=== PATIENT | male | born 1965 | race African-American/Black ===

== ENCOUNTER 2016-10-05 06:06 | Outpatient (CLI) | payer MEDICARE, MEDICAID ==
--- NOTE | 2016-10-05 12:10 | Fluoroscopy Report ---
MODIFIED BARIUM SWALLOW History: Dysphagia. Findings: Fluoroscopy was provided by the radiologist for speech therapy to assess the swallowing mechanism. Please refer to the formal report by speech therapy. Impression: Successful modified barium swallow.
== END 2016-10-05 06:07 | disposition home or self-care (01) ==
LOC: EDSEX 06:06 → PT 06:06
PROVIDERS: ATTEND Internal Medicine
DX: R47.01 Aphasia (principal)
CPT/HCPCS: 74230; 92611; G8996; G8997; G8998

== ENCOUNTER 2018-04-19 08:23 | Outpatient (CLI) | payer MEDICARE ==
--- NOTE | 2018-04-19 09:20 | Fluoroscopy Report ---
MODIFIED BARIUM SWALLOW History: Assess swallow safety Findings: Video radiography was provided by the radiologist for speech therapy to assess the swallowing mechanism. 1 fluoroscopic image was captured. Impression: Successful modified barium swallow.
== END 2018-04-19 08:24 | disposition home or self-care (01) ==
LOC: PT 08:23
PROVIDERS: ATTEND Internal Medicine
DX: R13.10 Dysphagia, unspecified (principal); I10 Essential (primary) hypertension; K21.9 Gastro-esophageal reflux disease without esophagitis; Z86.73 Personal history of transient ischemic attack (TIA), and cerebral infarction without residual deficits
CPT/HCPCS: 74230; 92611; G8996; G8997; G8998

== ENCOUNTER 2020-04-01 21:43 | Emergency (ER) | payer MEDICARE ==
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
--- NOTE | 2020-04-01 23:33 | XRay Report ---
ABDOMEN 1 VIEW(S) INDICATION / CLINICAL INFORMATION: Tube evaluation.. COMPARISON: None available. FINDINGS: TUBES / LINES: Gastric tube overlies the expected location of stomach. BOWEL GAS PATTERN: No significant abnormality. Moderate colonic stool greater on the left. ADDITIONAL FINDINGS: No significant additional findings. Signer Name: Vinicio Mckeon MD Signed: 04/01/2020 11:29 PM Workstation Name: [id number]
[2020-04-01] MEDS ORDERED: LORazepam 2 MG/ML VIAL IM ONE (23:42)
[2020-04-02 00:07] LABS: Basophils # (Auto) 0.1 K/mm3 (0.0-0.1); Basophils % (Auto) 0.5 % (0.0-1.8); Eosinophils # (Auto) 0.3 K/mm3 (0.0-0.4); Eosinophils % (Auto) 2.8 % (0.0-4.3); Hematocrit 34.3 % (35.5-45.6); Hemoglobin 11.7 gm/dl (11.8-15.2); Lymphocytes # (Auto) 2.7 K/mm3 (1.2-5.4); Lymphocytes % (Auto) 26.9 % (13.4-35.0); Mean Corpuscular HGB Conc 34 % (32-34); Mean Corpuscular Volume 97 fl (84-94); Monocytes # (Auto) 0.7 K/mm3 (0.0-0.8); Monocytes % (Auto) 6.6 % (0.0-7.3); Platelet Count 314 K/mm3 (140-440); Red Blood Count 3.55 M/mm3 (3.65-5.03); Red Cell Distribution Width 12.3 % (13.2-15.2)
[2020-04-02 00:31] LABS: Alanine Aminotransferase 21 units/L (7-56); Albumin 4.1 g/dL (3.9-5); BUN/Creatinine Ratio 23; Blood Urea Nitrogen 25 mg/dL (9-20); Calcium 9.6 mg/dL (8.4-10.2); Hemolysis Index 8
--- NOTE | 2020-04-02 01:16 | XRay Report ---
ABDOMEN 1 VIEW(S) INDICATION / CLINICAL INFORMATION: G tube function. COMPARISON: None available. FINDINGS: TUBES / LINES: NG tube overlies expected location of the stomach. BOWEL GAS PATTERN: No significant abnormality. Moderate colonic stool. ADDITIONAL FINDINGS: No significant additional findings. Signer Name: Vinicio Mckeon MD Signed: 04/02/2020 1:12 AM Workstation Name: [email or web address]
[2020-04-02 06:11] VITALS: BP 102/66
== END 2020-04-02 09:15 | disposition home or self-care (01) ==
LOC: ED 21:43
DX: K94.23 Gastrostomy malfunction (principal); R53.81 Other malaise; I10 Essential (primary) hypertension; G43.909 Migraine, unspecified, not intractable, without status migrainosus; K21.9 Gastro-esophageal reflux disease without esophagitis; F90.8 Attention-deficit hyperactivity disorder, other type; Z79.899 Other long term (current) drug therapy
CPT/HCPCS: 36415; 74018; 80053; 85025; 99284; Q9967

== ENCOUNTER 2020-06-03 08:37 | Outpatient (CLI) | payer MEDICARE ==
--- NOTE | 2020-06-03 14:23 | Fluoroscopy Report ---
MODIFIED BARIUM SWALLOW INDICATION: dysphagia TECHNIQUE: Swallowing was evaluated in the lateral position under direct fluoroscopy. FINDINGS: The patient was evaluated with thin liquids, nectar, puree and semisolid consistencies.. Silent aspiration was witnessed with thin liquids. No aspiration with nectar, puree or semisolids. Mi ld vallecular residuals were noted with all consistencies. IMPRESSION: Silent aspiration with thin liquids. Please correlate with the formal report by speech t mario. Fluoroscopic time: 1.0 minutes Number of fluoroscopic images: 1 Signer Name: Jose Swartz Jr, MD Signed: 06/03/2020 2:19 PM Workstation Name: [id number]
== END 2020-06-03 08:38 | disposition home or self-care (01) ==
LOC: FLUORO 08:37 → PT 08:37 → FLUORO 08:38
PROVIDERS: ATTEND Internal Medicine
DX: R13.10 Dysphagia, unspecified (principal)
CPT/HCPCS: 74230